=== PATIENT | female | born 1945 | race African-American/Black ===

== ENCOUNTER 2024-08-04 10:06 | Observation (INO) ==
--- NOTE | 2024-08-04 10:55 | DR.GENAD ---
HPI Time Seen Time Seen by Provider: 08/04/24 10:55 PCP Primary Care Physician: Dr. Blount HPI Comment HPI Comment: History as below. Complaint/Symptoms Chief Complaint Doctors Comments: Patient is 79yr old female in ER with peg tube malfunction. Patient peg tube came out yesterday. Distal portion of the tube was left in the stomach and only proximal portion came out. Forley cath was inserted in place of peg tube. Patient is here for evaluation. Chief Complaint:: Pt was recently admitted to the [facility] in [place] after hospitalization in [place]. Pt had a peg tube which she broke off last night and part of the tube was left in the abdomen. A sutton catheter was placed by Dr. Blount to replace the tube but the pt was sent here for evaluation to have peg replaced and other part of tube removed. COVID-19 Coronavirus risk:travel/contact w/high risk person: No Has patient experienced Coronavirus symptoms: No Nurses notes reviewed Nurses Notes Review: Yes Source History Provided: Patient Mode of Arrival Mode of Arrival: EMS Timing Onset of Chief Complaint: 08/04/24 PMH PMH Past Medical History: Yes Past Medical History: Dementia, Diabetes, Dyslipidemia and Hypothyroidism Past Medical History Comment: osteomyelitis left ankle and foot,afib Past Surgical History: Yes Past Surgical History Comment: peg tube placement Family History History of Family Medical Conditions: No Social History Does patient currently use any type of tobacco product: No Have you used tobacco products in the last 12 months: No Type of Tobacco Use: None Does any household member use tobacco: No Alcohol Use: None Do you use any recreational Drugs:: No Lives With: Other Lives Where: Long Term Travel Risk Coronavirus risk:travel/contact w/high risk person: No Has patient experienced Coronavirus symptoms: No Infectious screening In the last 2 months have you had wt loss of >10#?: NO Have you had fever, night sweats or hemotysis?: No Have you traveled outside the country in the last 6 months?: No Isolation: Standard PE Vital Signs Vitals: Vital Signs Temperature 98.1 F Pulse Rate [Left Radial] 102 Pulse Rate [Left Radial] 84 Pulse Rate 89 Pulse Rate 79 Respiratory Rate 20 Respiratory Rate 22 Respiratory Rate 20 Blood Pressure [Left Arm] 192/90 Blood Pressure [Left Arm] 160/81 Blood Pressure [Left Arm] 157/82 Blood Pressure [Left Arm] 149/74 Blood Pressure [Left Arm] 143/70 Blood Pressure 143/70 O2 Sat by Pulse Oximetry 96 O2 Sat by Pulse Oximetry 95 O2 Sat by Pulse Oximetry 93 O2 Sat by Pulse Oximetry 94 Opioid Opioid Risk Tool Age (Justino box if 16-45): No History of Preadolescent Sexual Abuse: No Total: 0 Total Score Risk Category: Low Risk Copyright: Christianson predicting aberrant behaviors Discharge Plan Discharge Plan Patient Disposition: HOME, SELF-CARE Condition: Stable Prescriptions: No Action quetiapine 25 mg tablet 25 mg feeding tube BID Patient Comments: [NO ORIGINAL SIG] acetaminophen [Tylenol Extra Strength] 500 mg Tablet 1,000 mg feeding tube Q4H PRN levothyroxine 88 mcg tablet 88 mcg feeding tube QDAY ascorbic acid (vitamin C) 500 mg Tablet 500 mg feeding tube DAILY amlodipine 10 mg tablet 10 mg PO QDAY hydralazine 100 mg tablet 100 mg feeding tube TID gabapentin 300 mg capsule 300 mg PO TID oxybutynin chloride 5 mg tablet 5 mg PO BID Refresh Relieva 0.5-0.9 % Drops 1 drp OPHTHALMIC (EYE) BID ferrous sulfate 15 mg iron (75 mg)/mL Drops 7.5 ml PO DAILY Multivitamin Women 50 Plus 8 mg iron-400 mcg-50 mcg Tablet 1 tab PO DAILY Health Concerns: Post Hospitalization: new medications and changes needed to prevent readmission or further decline. Pt educated and given instructions on all concerns. Plan of Treatment: Continue with present treatment and follow up plan. Pt is to keep follow up appointment as instructed and take medications as ordered. Orders to Discharge Patient Discharge Orders: Transfer (Routine); Ordered 08/04/24 Ordered By: LONG GAN Follow ups/Referrals Follow ups/Referrals: NFD,None [STAFF PHYSICIAN] - 3 days Instructions Stand Alone Forms: Find Help Web Site, Post Hospital Follow Up Care
--- NOTE | 2024-08-04 12:29 | CT ---
EXAM:ABDOMEN/PELVIS W/O CONHISTORY:Pt had a peg tube which she broke off last night and part of the tube was left in the abdomen. A sutton catheter was placed to replace the tube;COMPARISON:NoneTECHNIQUE:CT of the abdomen and pelvis obtained without IV contrast. Study limited due to lack of IV contrast. Dose reduction techniques including Automated Exposure Control (AEC) and adjustment of mA and kV were utilized.FINDINGS:The visualized portions of the lower thorax demonstrate no acute process.No acute osseous abnormality. Multilevel degenerative changes in the visualized spine.The liver, spleen, pancreas, bilateral adrenal glands, and bilateral kidneys demonstrate no acute process given lack of IV contrast. Prior cholecystectomy. Cirrhotic hepatic morphology. Presumed biliary stent.Sutton catheter tube tip in the gastric lumen. Residual enteric tubing in the gastric antrum. No evidence of bowel obstruction. The appendix is unremarkable. Diverticulosis without evidence of diverticulitis. Moderate stool in the colon and rectum.The bladder is unremarkable. No free air or fluid. Nonaneurysmal aorta. Extensive vascular calcifications.IMPRESSION:Residual enteric tube in the gastric antrum.Percutaneous tubing, likely Sutton catheter, terminates in the gastric lumen.Diverticulosis without evidence of diverticulitis.THIS IS AN ELECTRONICALLY VERIFIED FINAL [id number]/04/2024 12:26 PM - Electronically signed by Jose Brewer MD
[2024-08-04] MEDS: NS 500 ML IV 500 ML IV ONE (15:17)
[2024-08-04] MEDS: DIPRIVAN VIAL 20 ML ONE ×2 (15:25→16:03)
[2024-08-04] MEDS ORDERED: D5 1/2 NS 1,000 ML 1,000 ML IV ONE (16:28)
[2024-08-04] MEDS ORDERED: ANCEF VIAL 1 GRAM ONE (16:28)
[2024-08-04] MEDS: ANCEF VIAL 1 GRAM IVP SCH (16:35)
[2024-08-04] MEDS: D5 1/2 NS 1,000 ML 1,000 ML IV SCH (16:36)
[2024-08-04] MEDS ORDERED: ZOFRAN INJ 4 MG VIAL IVP PRN (19:11)
[2024-08-04 20:05] VITALS: BMI 51.5
[2024-08-05] MEDS ORDERED: NovoLIN R (or HumuLIN R) ONE (06:01)
[2024-08-05] MEDS: NovoLIN R (or HumuLIN R) SUBCUT PRN (06:15)
[2024-08-05 06:28] LABS: BASOPHILS # (AUTO) 0.1 X10^3/uL (0.0-0.1); BASOPHILS % (AUTO) 0.4 % (0.2-1.0); EOSINOPHILS % (AUTO) 0.2 % (0.9-2.9); HEMATOCRIT 42.5 % (36.0-47.0); HEMOGLOBIN 13.8 g/dL (12.0-16.0); LYMPHOCYTES # (AUTO) 1.2 X10^3/uL (1.3-2.9); LYMPHOCYTES % (AUTO) 8.1 % (21.0-51.0); MEAN CORPUSCULAR HEMOGLOBIN 27.2 pg (27.0-34.0); MEAN CORPUSCULAR HGB CONC 32.4 g/dL (33.0-35.0); MEAN PLATELET VOLUME 10.4 fL (7.4-11.0); MONOCYTES # (AUTO) 1.2 x10^3/uL (0.3-0.8); MONOCYTES % (AUTO) 8.2 % (0.0-13.0); NEUTROPHILS # (AUTO) 12.5 x10^3/uL (2.2-4.8); NEUTROPHILS % (AUTO) 83.1 % (42.0-75.0); PLATELET COUNT 247 X10^3/uL (150.0-450.0); RED BLOOD COUNT 5.06 X10^6/uL (3.5-5.4); RED CELL DISTRIBUTION WIDTH 15.4 % (11.6-16.5)
[2024-08-05 06:32] LABS: ALANINE AMINOTRANSFERASE 16 Units/L (12-78); ALBUMIN 2.6 g/dL (3.4-5.0); ALKALINE PHOSPHATASE 138 Units/L (46-116); ASPARTATE AMINO TRANSFERASE 20 Units/L (15-37); BLOOD UREA NITROGEN 23 mg/dL (7-18); CALCIUM 9.7 mg/dL (8.5-10.1); CARBON DIOXIDE 27.3 mmol/L (21-32); CHLORIDE 102 mmol/L (98-107); COR CA(FOR HYPOALB) 10.8 mg/dL (8.5-10.1); COR NA(FOR HYPERGLY) 143 mmol/L (136-145); CREATININE 1.06 mg/dL (0.55-1.02); GLUCOSE 188 mg/dL (65-99); MAGNESIUM 1.8 mg/dL (2.0-2.9); POTASSIUM 3.7 mmol/L (3.5-5.1); SODIUM 141 mmol/L (136-145); eGFR NON BLACK RACES 53 (>60)
[2024-08-05 07:00] LABS: PLATELET MORPHOLOGY COMMENT NORMAL (NORMAL); WHITE BLOOD COUNT 15.1 X10^3/uL (3.6-10.0)
[2024-08-05] MEDS ORDERED: D5 1/2 NS 1,000 ML 1,000 ML with MAGNESIUM SULFATE 50% INJ VIAL 1 G IV SCH (09:00)
[2024-08-05] MEDS ORDERED: PHARMACY CONSULT LTC MEDICATIONS XX SCH (10:00)
[2024-08-05 10:50] VITALS: BP 135/93; PULSE 99; RESP 20; TEMP 97.3; O2SAT 95
== END 2024-08-05 13:20 | disposition home or self-care (01) ==
LOC: ER 10:06 → MED/SURG 10:06
PROVIDERS: ADMIT Surgery; ATTEND Surgery
DX: E78.5 Hyperlipidemia, unspecified; E03.8 Other specified hypothyroidism; E11.65 Type 2 diabetes mellitus with hyperglycemia; K94.23 Gastrostomy malfunction; M86.8X8 Other osteomyelitis, other site